=== PATIENT | female | born 1995 | race Caucasian/White ===

== ENCOUNTER 2018-12-16 05:07 | Emergency (ER) | payer MEDICAID, OTHER ==
[~2018-12-16] VITALS: Ht 154.9 cm; Wt 90.7 kg
[~2018-12-16 05:07] MED LIST: CIPROFLOXACIN500 M2 ORAL; METRONIDAZOLE500 MG ORAL
[2018-12-16 05:14] VITALS: BP 133/90
--- NOTE | 2018-12-16 05:15 | NUR ---
ED Nurse Note: pt ambulated to ed c/o bee bite 30 minutes while working [employer]. bee stinger visible on back of neck.
--- NOTE | 2018-12-16 05:20 | NUR ---
ED Nurse Note: ermd at bedside, bee stinger removed with forceps by nurse. pt tolerated well.
[2018-12-16] MEDS ORDERED: BACITRACIN15 GM TOPIC (05:22)
[2018-12-16 05:25] VITALS: BP 128/87
--- NOTE | 2018-12-16 05:27 | NUR ---
ED Nurse Note: pt dc per ermd order, pt is aox4, vss, ambulatory with steady gait. shows no acutes signs of distress. pt was given dc and prescription instructions. pt was able to verbalize understanding. pt took all belongings.
--- NOTE | 2018-12-16 06:12 | Emergency Room Report ---
History of Present Illness General Chief Complaint: Animal Bite Source: Patient Present Illness HPI 23-year-old female presents ED for evaluation. Patient walked in stating that she was stung by a bee about 30 minutes ago. Stung in the back of her neck. States she felt a stinger lodged into her neck. Came to the ED for evaluation. Denies pain. Denies any allergy reaction. Denies any rash. Denies any tongue swelling or throat swelling. Denies any shortness of breath. No other aggravating relieving factors. Denies any other associated symptoms Allergies: Coded Allergies: No Known Allergies (Unverified , 08/26/13) Patient History Past Medical History: none Past Surgical History: none Pertinent Family History: none Social History: Denies: smoking, alcohol use, drug use Last Menstrual Period: 12/04/18 Now: No Immunizations: UTD Reviewed Nursing Documentation: PMH: Agreed; PSxH: Agreed Nursing Documentation-PMH Past Medical History: No History, Except For Review of Systems All Other Systems: negative except mentioned in HPI Physical Exam Vital Signs Date Time Temp Pulse Resp B/P (MAP) Pulse Ox O2 Delivery O2 Flow Rate FiO2 12/16/18 05:11 97.9 84 16 133/90 (104) 97 Room Air Sp02 EP Interpretation: reviewed, normal General Appearance: no apparent distress, alert, GCS 15, non-toxic Head: normocephalic Eyes: bilateral eye normal inspection, bilateral eye PERRL ENT: normal ENT inspection Neck: normal inspection, full range of motion, supple, no meningismus Respiratory: normal inspection Cardiovascular #1: normal inspection Gastrointestinal: normal inspection Rectal: deferred Genitourinary: no CVA tenderness Musculoskeletal: normal inspection Neurologic: alert, oriented x3, responsive, motor strength/tone normal, sensory intact, speech normal Psychiatric: normal inspection Skin: other - erythema to posterior neck. no fluctuance or discharge Lymphatic: normal inspection Medical Decision Making Diagnostic Impression: Primary Impression: Bee sting Qualified Codes: T63.441A - Toxic effect of venom of bees, accidental ( unintentional), initial encounter ER Course Hospital Course 23 yo F presents to ED c/o bee sting to the back of her neck Differential diagnoses include: Cellulitis, dermatitis, insect bite, abscess Clinical course Patient placed on stretcher. After initial history, physical exam reveals a young female in no acute distress. Area of erythema to the posterior neck. Appears to have bee stinger lodged. We removed the stinger without complication. discussed findings with patient. No evidence of allergic reaction anaphylaxis. We will discharge to home with bacitracin. Safe for discharge for close outpatient follow-up. I will provide referrals Diagnosis - bee sting stable and discharged to home with prescription for bacitracin. Instructed to followup with PMD. Instructed return to ED if symptoms recur or worsen Last Vital Signs Date Time Temp Pulse Resp B/P (MAP) Pulse Ox O2 Delivery O2 Flow Rate FiO2 12/16/18 05:25 98.2 84 20 128/87 99 Room Air Status: improved Disposition: HOME, SELF-CARE Condition: Stable Scripts Bacitracin (Bacitracin) 28.4 Gm Oint...g. 1 APPLIC TOPIC THREE TIMES A DAY, #28.4 GM Prov: Jeff Allred MD 12/16/18 Referrals: Quang Delgadillo MD (PCP) [facility] Patient Instructions: Bee, Wasp, or Hornet Sting Jeff Allred MD Dec 16, 2018 06:12
== END 2018-12-16 05:25 | disposition home or self-care (01) ==
LOC: EMR 05:20
DX: T63.441A Toxic effect of venom of bees, accidental (unintentional), initial encounter (principal); Y92.9 Unspecified place or not applicable
CPT/HCPCS: 99282